=== PATIENT | male | born 1945 | race Caucasian/White ===

== ENCOUNTER 2019-09-13 17:41 | Emergency (ER) | payer MEDICARE, BC, OTHER ==
[2019-09-13] MEDS ORDERED: Sodium Chloride 0.9% 10 ML Syringe FLUSH PRN (17:50)
[2019-09-13] MEDS ORDERED: Aspirin 81 MG Tab.Chew PO ONE (17:59)
--- NOTE | 2019-09-13 18:12 | EDM.PDOC ---
<Ramez De Leon - Last Filed: 09/13/19 18:01> ED HPI GENERAL MEDICAL PROBLEM - General Chief Complaint: Chest Pain Stated Complaint: ABNORMAL EKG AT CLINIC Time Seen by Provider: 09/13/19 18:00 Source of Information: Reports: Patient History Limitations: Reports: No Limitations - History of Present Illness INITIAL COMMENTS - FREE TEXT/NARRATIVE: Patient presented to the ED via private vehicle accompanied by his . He reports chest pain that came on while he was at work today and was having trouble taking deep breaths. Pain was located on is upper left anterior chest and did not radiate. He states he took 2-3 breaths with his inhaler at 1430 today right when the pain and trouble breathing started and resolved his symptoms immediately. He kept working but the trouble breathing returned and persisted. He also reports that he started getting a cold last Friday and now has had some chest congestion. He has a nonproductive cough but when he does get some up it is clear in color. Onset: Today Duration: Hour(s): (5 hours) Location: Reports: Chest Quality: Reports: Ache Severity: Mild Worsens with: Reports: Other (using his inhaler) Associated Symptoms: Reports: Chest Pain, Cough, Headaches, Shortness of Breath , Weakness. Denies: cough w sputum, Diaphoresis, Nausea/Vomiting, Syncope - Related Data Allergies Allergy/AdvReac Type Severity Reaction Status Date / Time naproxen Allergy Anxiety Verified 09/13/19 18:53 Home Meds: Home Meds Albuterol/Ipratropium [Combivent] 1 puff INH QID PRN 02/04/14 [History] Ascorbic Acid [C-1000] 500 mg PO DAILY 02/04/14 [History] Cholecalciferol (Vitamin D3) [Vitamin D] 1 tab PO ASDIRECTED 02/04/14 [History] Cyanocobalamin (Vitamin B-12) [Cyanocobalamin Injection] 1 ml IM 02/04/14 [ History] Fish Oil/Finley-3 Fatty Acids [Fish Oil] 2 each PO DAILY 02/04/14 [History] Insulin Aspart [NovoLOG] 80 units SQ 02/04/14 [History] Insulin Glarg,Human.Rec.Analog [Lantus] 15 unit SQ BID 02/04/14 [History] Mesalamine [Pentasa] 4 tab PO BID 02/04/14 [History] Metoprolol Tartrate [Lopressor] 25 mg PO Q12HR 02/04/14 [History] Omeprazole [Prilosec] 1 tab PO DAILY 02/04/14 [History] Spironolactone [Aldactone] 25 mg PO DAILY 02/04/14 [History] metFORMIN [Glucophage XR] 1 tab PO BID 02/04/14 [History] ED ROS GENERAL - Review of Systems Review Of Systems: See Below Constitutional: Reports: Chills, Fatigue. Denies: Diaphoresis, Decreased Appetite, Weight Loss HEENT: Reports: No Symptoms Respiratory: Reports: Shortness of Breath, Wheezing, Cough. Denies: Sputum Cardiovascular: Reports: Chest Pain, Dyspnea on Exertion. Denies: Claudication , Orthopnea, Palpitations, Syncope Endocrine: Reports: No Symptoms GI/Abdominal: Reports: No Symptoms : Reports: No Symptoms Musculoskeletal: Reports: No Symptoms Skin: Reports: No Symptoms Neurological: Reports: Headache. Denies: Confusion, Dizziness, Paresthesia, Syncope Psychiatric: Reports: No Symptoms Hematologic/Lymphatic: Reports: No Symptoms Immunologic: Reports: No Symptoms ED EXAM, GENERAL - Physical Exam Exam: See Below Exam Limited By: No Limitations General Appearance: Alert, WD/WN, No Apparent Distress Eye Exam: Bilateral Eye: Abnormal EOM, Abnormal Pupil Ears: Normal External Exam, Normal Canal, Hearing Grossly Normal, Normal TMs Ear Exam: Bilateral Ear: Auricle Normal, Canal Normal, TM normal Nose: Normal Inspection, Normal Mucosa, No Blood Throat/Mouth: Normal Inspection, Normal Lips, Normal Teeth, Normal Gums, Normal Oropharynx, Normal Voice, No Airway Compromise Head: Atraumatic, Normocephalic Neck: Normal Inspection, Supple, Non-Tender, Full Range of Motion Respiratory/Chest: Chest Non-Tender, Decreased Breath Sounds, Wheezing ( bilaterally). No: Lungs Clear, Normal Breath Sounds Cardiovascular: Normal Peripheral Pulses, Regular Rate, Rhythm, No Edema, No Gallop, No JVD, No Murmur, No Rub GI/Abdominal: Normal Bowel Sounds, Soft, Non-Tender, No Organomegaly, No Distention, No Abnormal Bruit, No Mass (Male) Exam: Deferred Rectal (Males) Exam: Deferred Extremities: Normal Inspection, Normal Range of Motion, Non-Tender, Normal Capillary Refill, No Pedal Edema Neurological: Alert, Oriented, CN II-XII Intact, Normal Cognition, Normal Gait, Normal Reflexes, No Motor/Sensory Deficits Psychiatric: Normal Affect, Normal Mood Skin Exam: Warm, Dry, Intact, Normal Color, No Rash Lymphatic: No Adenopathy Course - Vital Signs Last Recorded V/S: Last Vital Signs Temp 99 F 09/13/19 17:43 Pulse 75 09/13/19 17:43 Resp 16 09/13/19 17:43 BP 126/95 H 09/13/19 17:43 Pulse Ox 98 09/13/19 17:43 - Orders/Labs/Meds Orders: Active Orders 24 hr Category Date Time Status EKG 12 Lead [EKG Documentation Completion] [RC] STAT Care 09/13/19 17:50 Active Peripheral IV Care [RC] . DIRECTED Care 09/13/19 17:51 Active RT Aerosol Therapy [RC] ASDIRECTED Care 09/13/19 18:14 Active Chest 1V Frontal [CR] Stat Exams 09/13/19 17:50 Taken CULTURE BLOOD [BC] Stat Lab 09/13/19 18:05 Received CULTURE BLOOD [BC] Stat Lab 09/13/19 18:12 Received Heparin Sodium/0.45% NaCl [Heparin 25,000 Units in 1/2 Med 09/13/19 19:15 Active NS 500 ML] 25,000 units in 500 ml IV TITRATE Sodium Chloride 0.9% [Saline Flush] Med 09/13/19 17:50 Active 10 ml FLUSH ASDIRECTED PRN Blood Culture x2 Reflex Set [OM.PC] Stat Oth 09/13/19 17:50 Ordered Peripheral IV Insertion Adult [OM.PC] Stat Oth 09/13/19 17:50 Ordered Medication Orders Heparin Sodium/Sodium Chloride (Heparin 25,000 Units In 1/2 Ns 500 Ml) 25,000 units in 500 mls @ 20.662 mls/hr IV TITRATE DAVY; Protocol Last Admin: 09/13/19 19:31 Dose: 12 units/kg/hr, 20.662 mls/hr Sodium Chloride (Saline Flush) 10 ml FLUSH ASDIRECTED PRN PRN Reason: Keep Vein Open Last Admin: 09/13/19 18:25 Dose: 10 ml Labs: Laboratory Tests 09/13/19 09/13/19 09/13/19 Range/Units 18:05 18:05 18:05 WBC 4.8 L (5.0-10.0) 10^3/uL RBC 4.52 L (4.6-6.2) 10^6/uL Hgb 14.3 (14.0-18.0) g/dL Hct 42.1 (40.0-54.0) % MCV 93.1 (80-100) fL MCH 31.6 (27.0-34.0) pg MCHC 34.0 (33.0-35.0) g/dL Plt Count 135 L D (150-450) 10^3/uL Neut % (Auto) 57.2 (42.2-75.2) % Lymph % (Auto) 26.5 (20.5-50.1) % [place] % (Auto) 14.2 H (2-8) % Eos % (Auto) 1.9 (1.0-3.0) % Baso % (Auto) 0.2 (0.0-1.0) % PT 10.2 (9.0-12.0) SEC INR 1.0 (0.9-1.2) APTT 27.2 (22.0-34.0) SEC Sodium 137 (135-145) mmol/L Potassium 3.8 (3.6-5.0) mmol/L Chloride 104 (101-111) mmol/L Carbon Dioxide 24.0 (21.0-31.0) mmol/L Anion Gap 12.8 BUN 12 (7-18) mg/dL Creatinine 1.1 (0.6-1.3) mg/dL Est Cr Clr Drug Dosing TNP Estimated GFR (MDRD) > 60 BUN/Creatinine Ratio 10.90 Glucose 119 H (74-105) mg/dL Lactic Acid (0.5-2.0) mmol/L Calcium 8.5 (8.4-10.2) mg/dl Total Bilirubin 0.6 (0.2-1.0) mg/dL AST 28 (10-42) IU/L ALT 26 (10-60) IU/L Alkaline Phosphatase 110 (42-121) IU/L Troponin I 0.06 H* (0.00-0.02) ng/ml B-Natriuretic Peptide 393 H (0-100) pg/ml Total Protein 7.0 (6.7-8.2) g/dl Albumin 3.8 (3.2-5.5) g/dl Globulin 3.2 Albumin/Globulin Ratio 1.19 Urine Color (YELLOW) Urine Appearance (CLEAR) Urine pH (5.0-9.0) Ur Specific [place] (1.005-1.030) Urine Protein (NEGATIVE) Urine Glucose (UA) (NEGATIVE) Urine Ketones (NEGATIVE) Urine Occult Blood (NEGATIVE) Urine Nitrite (NEGATIVE) Urine Bilirubin (NEGATIVE) Urine Urobilinogen (0.2-1.0) mg/dL Ur Leukocyte Esterase (NEGATIVE) Urine RBC /HPF Urine WBC (0-5/HPF) /HPF Ur Epithelial Cells (NOT SEEN) /HPF Amorphous Sediment (NOT SEEN) /HPF Urine Bacteria (0-FEW/HPF) /HPF Urine Mucus (NOT SEEN) /LPF 09/13/19 09/13/19 Range/Units 18:05 18:37 WBC (5.0-10.0) 10^3/uL RBC (4.6-6.2) 10^6/uL Hgb (14.0-18.0) g/dL Hct (40.0-54.0) % MCV (80-100) fL MCH (27.0-34.0) pg MCHC (33.0-35.0) g/dL Plt Count (150-450) 10^3/uL Neut % (Auto) (42.2-75.2) % Lymph % (Auto) (20.5-50.1) % [place] % (Auto) (2-8) % Eos % (Auto) (1.0-3.0) % Baso % (Auto) (0.0-1.0) % PT (9.0-12.0) SEC INR (0.9-1.2) APTT (22.0-34.0) SEC Sodium (135-145) mmol/L Potassium (3.6-5.0) mmol/L Chloride (101-111) mmol/L Carbon Dioxide (21.0-31.0) mmol/L Anion Gap BUN (7-18) mg/dL Creatinine (0.6-1.3) mg/dL Est Cr Clr Drug Dosing Estimated GFR (MDRD) BUN/Creatinine Ratio Glucose (74-105) mg/dL Lactic Acid 1.0 (0.5-2.0) mmol/L Calcium (8.4-10.2) mg/dl Total Bilirubin (0.2-1.0) mg/dL AST (10-42) IU/L ALT (10-60) IU/L Alkaline Phosphatase (42-121) IU/L Troponin I (0.00-0.02) ng/ml B-Natriuretic Peptide (0-100) pg/ml Total Protein (6.7-8.2) g/dl Albumin (3.2-5.5) g/dl Globulin Albumin/Globulin Ratio Urine Color Yellow (YELLOW) Urine Appearance Slightly cloudy (CLEAR) Urine pH 5.5 (5.0-9.0) Ur Specific [place] 1.025 (1.005-1.030) Urine Protein 100 H (NEGATIVE) Urine Glucose (UA) 100 H (NEGATIVE) Urine Ketones Negative (NEGATIVE) Urine Occult Blood Negative (NEGATIVE) Urine Nitrite Negative (NEGATIVE) Urine Bilirubin Negative (NEGATIVE) Urine Urobilinogen 0.2 (0.2-1.0) mg/dL Ur Leukocyte Esterase Negative (NEGATIVE) Urine RBC 0-5 /HPF Urine WBC 0-5 (0-5/HPF) /HPF Ur Epithelial Cells Rare (NOT SEEN) /HPF Amorphous Sediment Few (NOT SEEN) /HPF Urine Bacteria Rare (0-FEW/HPF) /HPF Urine Mucus Few H (NOT SEEN) /LPF Meds: Medications Generic Name Dose Route Start Last Admin Trade Name Freq PRN Reason Stop Dose Admin Heparin Sodium/Sodium Chloride 25,000 units in 500 mls @ 20.662 mls/hr 19:15 09/13/19 19:31 Heparin 25,000 Units In 1/2 Ns 500 Ml IV 12 units/kg/hr TITRATE DAVY 20.662 mls/hr Administration Protocol 12 UNITS/KG/HR Sodium Chloride 10 ml 09/13/19 17:50 09/13/19 18:25 Saline Flush FLUSH 10 ml ASDIRECTED PRN Administration Keep Vein Open Discontinued Medications Generic Name Dose Route Start Last Admin Trade Name Freq PRN Reason Stop Dose Admin Albuterol/Ipratropium 3 ml 09/13/19 18:14 09/13/19 18:17 Duoneb 3.0-0.5 Mg/3 Ml NEB 09/13/19 18:15 3 ml ONETIME ONE Administration Aspirin 324 mg 09/13/19 17:59 09/13/19 18:14 Aspirin PO 09/13/19 18:00 324 mg ONETIME ONE Administration Heparin Sodium (Porcine) 4,000 units 09/13/19 19:22 09/13/19 19:29 Heparin Sodium IVPUSH 09/13/19 19:23 4,000 units .BOLUS ONE Administration Departure - Departure Disposition: DC/Tfer to [facility] 02 Clinical Impression: Influenza B, NSTEMI (non-ST elevated myocardial infarction) Forms: ED Department Discharge, Interfacility Transfer EMTALA Sepsis Event Note - Focused Exam Vital Signs: Vital Signs Temp Pulse Resp BP Pulse Ox 09/13/19 17:43 99 F 75 16 126/95 H 98 - My Orders Last 24 Hours: My Active Orders 09/13/19 19:15 Heparin Sodium/0.45% NaCl [Heparin 25,000 Units in 1/2 NS 500 ML] 25,000 units in 500 ml IV TITRATE - Assessment/Plan Last 24 Hours: My Active Orders 09/13/19 19:15 Heparin Sodium/0.45% NaCl [Heparin 25,000 Units in 1/2 NS 500 ML] 25,000 units in 500 ml IV TITRATE <Bertrand Hernandez - Last Filed: 09/13/19 19:23> ED HPI GENERAL MEDICAL PROBLEM - General Source of Information: Reports: Patient, Family, Provider, RN, RN Notes Reviewed History Limitations: Reports: No Limitations ED ROS GENERAL - Review of Systems Review Of Systems: Comprehensive ROS is negative, except as noted in HPI. ED EXAM, GENERAL - Physical Exam Free Text/Narrative:: No change to exam as documented by the student for this encounter. EKG INTERPRETATION EKG Date: 09/13/19 Time: 18:05 Rhythm: Other (sinus rhythm) Rate (Beats/Min): 76 [place]: Normal P-Wave: Present QRS: Other (LVH with secondary repolization abnormality) ST-T: Normal QT: Normal Comparison: No Change Course - Radiology Interpretation Free Text/Narrative:: Chest XR: no acute process, see Rad. report. Departure - Departure Time of Disposition: 19:04 Reason for Transfer *Q: Primary PCI Indicated Sepsis Event Note - Focused Exam Date Exam was Performed: 09/13/19 Time Exam was Performed: 19:23 <Nellie Angel Last Filed: 09/13/19 20:03> Sepsis Event Note - Focused Exam Date Exam was Performed: 09/13/19 Time Exam was Performed: 20:03
[2019-09-13] MEDS ORDERED: Albuterol/Ipratropium 3.0-0.5 MG/3 ML Neb Soln NEB ONE (18:14)
[2019-09-13 18:41] LABS: ANION GAP 12.8; CHLORIDE,CL 104 mmol/L (101-111); SODIUM,NA 137 mmol/L (135-145)
[2019-09-13] MEDS ORDERED: Heparin Sodium/0.45% NaCl 25,000 UNITS/500 ML BAG IV SCH (19:15)
[2019-09-13] MEDS ORDERED: Heparin Sodium 5,000 Units/ML Vial IVPUSH ONE (19:22)
== END 2019-09-13 19:50 ==
LOC: DL.ED 17:41
DX: I21.4 Non-ST elevation (NSTEMI) myocardial infarction (principal); J10.1 Influenza due to other identified influenza virus with other respiratory manifestations; Z88.6 Allergy status to analgesic agent
CPT/HCPCS: 36415; 71045; 80053; 81001; 82962; 83605; 83880; 84484; 85025; 85610; 85730; 87040; 87804; 93005; 94640; 96374; 99285; A9270; J1644; J7620-GY

== ENCOUNTER 2021-09-26 15:11 | Observation (INO) | payer MEDICARE, BC, OTHER ==
[2021-09-26] MEDS ORDERED: Aspirin 81 MG Tab.Chew PO ONE (15:14)
[2021-09-26 16:01] LABS: ANION GAP 14.2 mEq/L (7-13); CHLORIDE,CL 105 mmol/L (98-107); SODIUM,NA 139 mmol/L (136-145)
[2021-09-26] MEDS ORDERED: Nitroglycerin 0.4 MG Tab.SL SL ONE ×2 (16:02→16:27)
[2021-09-26] MEDS ORDERED: Heparin Sodium 5,000 Units/ML Vial IVPUSH ONE (16:45)
[2021-09-26] MEDS ORDERED: Heparin Sodium/0.45% NaCl 25,000 UNITS/500 ML BAG IV SCH (16:45)
[2021-09-26] MEDS ORDERED: Zolpidem 5 MG Tab PO PRN (18:03)
[2021-09-26] MEDS ORDERED: Ondansetron 4 MG/2 ML SDV IVPUSH PRN (18:03)
[2021-09-26] MEDS ORDERED: Promethazine 25 MG/ML SDV IM PRN (18:03)
[2021-09-26] MEDS ORDERED: HYDROmorphone 0.5 MG/0.5 ML Syringe IVPUSH PRN (18:03)
[2021-09-26] MEDS ORDERED: Polyethylene Glycol 3350 Powder 17 GM Packet PO PRN (18:03)
[2021-09-26] MEDS ORDERED: Sodium Chloride 0.9% 10 ML Syringe FLUSH PRN (18:03)
[2021-09-26] MEDS ORDERED: Albuterol/Ipratropium 3.0-0.5 MG/3 ML Neb Soln NEB PRN (18:03)
[2021-09-26] MEDS ORDERED: Acetaminophen/HYDROcodone 325-10 MG Tab PO PRN (18:03)
[2021-09-26] MEDS ORDERED: Acetaminophen 325 MG Tab PO PRN (18:03)
[2021-09-26] MEDS ORDERED: IPRATROPIUM INH PRN (18:05)
[2021-09-26] MEDS ORDERED: 50% Dextrose in Water 50 ML Syringe IVPUSH PRN ×3 (18:05→20:34)
[2021-09-26] MEDS ORDERED: ALBUTEROL INH PRN (18:05)
[2021-09-26] MEDS ORDERED: Glucagon,Human Recombinant 1 MG Vial IM PRN ×3 (18:05→20:34)
[2021-09-26] MEDS ORDERED: Insulin Lispro 100 Units/ML 3 ML Vial SUBCUT PRN (18:08)
[2021-09-26] MEDS ORDERED: Non-Formulary Medication 1 Each (Cholecalciferol (Vitamin D3) [Vitamin D3] 5,000 UNIT Tabl PO SCH (18:15)
[2021-09-26] MEDS ORDERED: Insulin Glarg,Human.Rec.Analog 100 Unit/ML SUBCUT SCH (21:00)
[2021-09-27 05:56] LABS: ANION GAP 9.1 mEq/L (7-13); CHLORIDE,CL 107 mmol/L (98-107); SODIUM,NA 141 mmol/L (136-145)
[2021-09-27] MEDS ORDERED: Heparin Sodium 5,000 Units/ML Vial IVPUSH ONE (06:42)
[2021-09-27] MEDS ORDERED: Tamsulosin 0.4 MG Cap.ER PO SCH (09:00)
[2021-09-27] MEDS ORDERED: Ferrous Sulfate 325 MG Tab PO SCH (09:00)
[2021-09-27] MEDS ORDERED: ASCORBIC ACID 1000 MG PO SCH (09:00)
[2021-09-27] MEDS ORDERED: MECLIZINE 25 MG PO SCH (09:00)
[2021-09-27] MEDS ORDERED: Lisinopril 20 MG Tab PO SCH (09:00)
[2021-09-27] MEDS ORDERED: LIPASE PO SCH (09:00)
[2021-09-27] MEDS ORDERED: Non-Formulary Medication 1 Each (Zinc Gluconate [Zinc] 50 MG Tablet) PO SCH (09:00)
[2021-09-27] MEDS ORDERED: [UNRECOGNIZED DRUG - OTHER] PO SCH (09:00)
[2021-09-27] MEDS ORDERED: VITAMIN A 2400 MCG PO SCH (09:00)
[2021-09-27] MEDS ORDERED: atorvaSTATin 10 MG Tab PO SCH (09:00)
[2021-09-27] MEDS ORDERED: PROTEASE PO SCH (09:00)
[2021-09-27] MEDS ORDERED: Omeprazole 20 MG Cap.CR PO SCH (09:00)
[2021-09-27] MEDS ORDERED: AMYLASE PO SCH (09:00)
== END 2021-09-27 07:30 ==
LOC: DL.ED 15:11 → DL.MS 17:39
PROVIDERS: ADMIT Internal Medicine; ATTEND Internal Medicine
DX: R07.89 Other chest pain (principal); I10 Essential (primary) hypertension; E78.5 Hyperlipidemia, unspecified; J44.9 Chronic obstructive pulmonary disease, unspecified; K21.9 Gastro-esophageal reflux disease without esophagitis; I25.2 Old myocardial infarction; E55.9 Vitamin D deficiency, unspecified; N40.0 Benign prostatic hyperplasia without lower urinary tract symptoms; E53.8 Deficiency of other specified B group vitamins; K86.89 Other specified diseases of pancreas; D50.9 Iron deficiency anemia, unspecified; D72.829 Elevated white blood cell count, unspecified; E10.65 Type 1 diabetes mellitus with hyperglycemia; E88.09 Other disorders of plasma-protein metabolism, not elsewhere classified; Z86.16 Personal history of COVID-19; Z88.8 Allergy status to other drugs, medicaments and biological substances; Z98.890 Other specified postprocedural states; Z87.891 Personal history of nicotine dependence
CPT/HCPCS: 36415; 71045; 80048; 80053; 80061; 82150; 82947; 83605; 83690; 83735; 84484; 85025; 85379; 85610; 85730; 93005; A9270; J1644; J1815

== ENCOUNTER → 2022-05-15 | Day surgery (SDC) | payer MEDICARE, BC | LOC: DL.SDS 07:30 | PROVIDERS: ATTEND Ophthalmology | DX: E10.36 Type 1 diabetes mellitus with diabetic cataract (principal); E10.39 Type 1 diabetes mellitus with other diabetic ophthalmic complication; H25.811 Combined forms of age-related cataract, right eye; H40.1111 Primary open-angle glaucoma, right eye, mild stage; I25.10 Atherosclerotic heart disease of native coronary artery without angina pectoris; J44.9 Chronic obstructive pulmonary disease, unspecified; K21.9 Gastro-esophageal reflux disease without esophagitis; E78.5 Hyperlipidemia, unspecified; I10 Essential (primary) hypertension; K85.90 Acute pancreatitis without necrosis or infection, unspecified; D50.0 Iron deficiency anemia secondary to blood loss (chronic); Z87.891 Personal history of nicotine dependence; Z88.6 Allergy status to analgesic agent; Z79.899 Other long term (current) drug therapy; Z79.82 Long term (current) use of aspirin; Z98.890 Other specified postprocedural states | CPT/HCPCS: 00142; 66991; 82947; V2632 ==

== ENCOUNTER 2022-05-29 07:32 | Day surgery (SDC) | payer MEDICARE, BC ==
[~2022-05-29 07:32] MED LIST: Acetaminophen 325 MG Tab PO PRN; Acetaminophen/Codeine 300-30 MG Tab PO PRN; Cataract Ophth Solution EYELF ONE; Moxifloxacin 0.5% Ophth Soln 3 ML Bottle EYELF ONE; Ondansetron 4 MG/2 ML SDV IVPUSH PRN; Phenylephrine 10% Ophth Soln 5 ML Bot EYELF PRN; Povidone-Iodine 5% Sterile Ophth Soln 30 ML Bottle EYELF ONE; Proparacaine 0.5% Ophth Soln 15 ML Bottle EYELF ONE; Sodium Chloride 0.9% 10 ML Syringe FLUSH PRN; Timolol Maleate 0.5% Ophth Soln 5 ML Bottle EYELF ONE; Tropicamide 1% Ophth Soln 15 ML Bottle EYELF ONE
[2022-05-29] MEDS ORDERED: Midazolam 1 MG/ML 2 ML SDV IV ONE (07:33)
[2022-05-29] MEDS ORDERED: Dexamethasone 4 MG/ML SDV IV ONE (07:33)
[2022-05-29] MEDS ORDERED: Proparacaine 0.5% Ophth Soln 15 ML Bottle EYELF ONE (11:02)
[2022-05-29] MEDS ORDERED: Povidone-Iodine 5% Sterile Ophth Soln 30 ML Bottle EYELF ONE (11:03)
[2022-05-29] MEDS ORDERED: Apraclonidine 0.5% Ophth Soln 5 ML Bot EYELF ONE (11:04)
[2022-05-29] MEDS ORDERED: Diclofenac Sodium 0.1% Ophth Soln 5 ML Bottle EYELF ONE (11:05)
[2022-05-29] MEDS ORDERED: Dexamethasone/Neomycin/Polymyxin B Ophth Oint 3.5 GM Tube EYELF ONE (11:06)
[2022-05-29] MEDS ORDERED: Lidocaine 1% 5 ML VIAL ONE (11:07)
[2022-05-29] MEDS ORDERED: Balanced Salt Solution Ophth Irrig 500 ML Bottle IOCULAR ONE (11:09)
[2022-05-29] MEDS ORDERED: Vancomycin 500 MG SDV EYELF ONE (11:10)
[2022-05-29] MEDS ORDERED: Chondroitin Sulfate/Hyaluronate Sodium Ophth Inj 0.75 ML Syringe EYELF ONE (12:52)
[2022-05-29 12:54] LABS: ANION GAP 10.7 mEq/L (7-13)
== END 2022-05-29 11:55 | disposition other institution (70) ==
LOC: DL.SDS 07:32
PROVIDERS: ATTEND Ophthalmology
DX: E10.36 Type 1 diabetes mellitus with diabetic cataract (principal); E10.39 Type 1 diabetes mellitus with other diabetic ophthalmic complication; H40.1111 Primary open-angle glaucoma, right eye, mild stage; N40.0 Benign prostatic hyperplasia without lower urinary tract symptoms; K21.9 Gastro-esophageal reflux disease without esophagitis; I10 Essential (primary) hypertension; J44.9 Chronic obstructive pulmonary disease, unspecified; E78.5 Hyperlipidemia, unspecified; E53.8 Deficiency of other specified B group vitamins; D50.9 Iron deficiency anemia, unspecified; N52.9 Male erectile dysfunction, unspecified; Z98.890 Other specified postprocedural states; Z87.891 Personal history of nicotine dependence; Z79.899 Other long term (current) drug therapy; Z88.8 Allergy status to other drugs, medicaments and biological substances
CPT/HCPCS: 00142; 36415; 66984; 71045; 80053; 82947; 84484; 85025; A9270; J1100; J2250; J3370; J3490; V2632; 93010; 99284

== ENCOUNTER 2022-05-29 11:48 | Emergency (ER) | payer MEDICARE, BC | END 2022-05-29 13:55 | disposition home or self-care (01) | LOC: DL.ED 11:48 | DX: Z53.8 Procedure and treatment not carried out for other reasons (principal) | CPT/HCPCS: 36415; 71045; 80053; 84484; 85025; 93005; 99284 ==